=== PATIENT | female | born 2000 | race Caucasian/White ===

== ENCOUNTER 2019-04-24 13:22 | Outpatient (CLI) | payer OTHER, SELFPAY ==
[2019-04-24 14:13] LABS: Hematocrit 42.1 % (37.0-47.0); Mean Corpuscular HGB Conc 33.3 g/dl (32-36); Mean Corpuscular Hemoglobin 29.6 pg (26-34); Mean Platelet Volume 9.7 fl (7.4-10.4); Platelet Count Result 324 k/mm3 (150-375); Red Blood Count 4.73 M/mm3 (4.2-5.4); White Blood Count 11.1 K/mm3 (4.5-10.0)
[2019-04-24 14:28] LABS: Alanine Aminotransferase 10 U/L (4-35); Albumin Level 4.6 g/dL (3.5-5.1); Alkaline Phosphatase 81 U/L (38-126); Aspartate Amino Transferase 17 U/L (14-36); Bilirubin,Total 0.5 mg/dL (0.2-1.3); Blood Urea Nitrogen 8 mg/dL (7-17); Calcium 9.2 mg/dL (8.4-10.2); Carbon Dioxide 20 mmol/L (22-30); Chloride 101 mmol/L (98-107); Estimated Glomerular Filt Rate > 60; Glucose 84 mg/dL (65-105); Potassium 3.5 mmol/L (3.4-5.0); Sodium 138 mmol/L (137-145)
[2019-04-24 15:00] LABS: Thyroid Stimulating Hormone 0.284 uIU/mL (0.465-4.680)
[2019-04-24 15:10] LABS: Free T4 Free Thyroxine 1.11 ng/mL (0.78-2.19)
[2019-04-29 07:43] LABS: Vitamin D 1,25 (OH)2 Total 41 pg/mL (18-72); Vitamin D2 1,25 (OH)2 <8 pg/mL; Vitamin D3 1,25 (OH)2 41 pg/mL
== END 2019-04-24 13:23 | disposition home or self-care (01) ==
LOC: ANHLAB 13:24
PROVIDERS: PCP Family Medicine; Visit Provider Nurse Practitioner Family
DX: E04.9 Nontoxic goiter, unspecified (principal); F41.9 Anxiety disorder, unspecified; E55.9 Vitamin D deficiency, unspecified
CPT/HCPCS: 36415; 80053; 82652; 84439; 84443; 85027

== ENCOUNTER 2019-04-26 08:57 | Outpatient (CLI) | payer OTHER, SELFPAY ==
--- NOTE | ~2019-04-26 | US_ITS ---
EXAMINATION: US thyroid DATE: 04/26/2019 10:13 INDICATION: Goiter. TECHNIQUE: Multiple ultrasound images of the thyroid were obtained. COMPARISON: None. FINDINGS: The right thyroid lobe measures 4.9 x 1.7 x 1.6 cm. The left thyroid lobe measures 5.3 x 1.9 x 1.7 c m. There is normal echotexture and echogenicity throughout the thyroid gland. No discrete nodules id entified. Normal vascular flow is present. IMPRESSION: 1. Normal thyroid. Reviewed, dictated and finalized at location A. ING RIGGER IMPRESSION: 1. Normal thyroid.
== END 2019-04-26 08:58 | disposition home or self-care (01) ==
PROVIDERS: PCP Family Medicine; Visit Provider Nurse Practitioner Family
DX: E04.9 Nontoxic goiter, unspecified (principal)
CPT/HCPCS: 76536

== ENCOUNTER 2019-05-08 21:47 | Emergency (ER) | payer OTHER, SELFPAY ==
--- NOTE | ~2019-05-08 | CT_ITS ---
EXAMINATION: CT soft tiss nk chst ab pel w DATE: 05/09/2019 01:31 INDICATION: Throat swelling and neck pain, abdominal pain and diarrhea TECHNIQUE: Transaxial computed tomographic images of the neck, chest, abdomen, and pelvis were obtain ed after the administration of 100 cc of Omnipaque 350 intravenous contrast. The dose-length product (DLP) was 999.05 mGy-cm. Automated exposure control and iterative reconstruction technique were emplo yed. COMPARISON: None FINDINGS: NECK CT: The neck soft tissues are unremarkable. No abnormal enhancement is identified. There is no lymphadeno yahir. There is straightening of the cervical spine which can be positional or due to muscular spasm. No acute osseous abnormality is identified. CHEST CT: The lungs are free of acute opacities. There is no pleural effusion or pneumothorax. No pathologicall y enlarged thoracic lymph nodes are identified. The heart size is normal. Triangular soft tissue dens ity of the anterior mediastinum is consistent with residual thymus. Motion artifact somewhat limits e valuation of the lung bases. ABDOMEN/PELVIS CT: The liver, spleen, pancreas, gallbladder, and adrenal glands are normal. The kidneys are unremarkable . No pathologically enlarged abdominal or pelvic lymph nodes are identified. There is no free intrape ritoneal gas or evidence of bowel obstruction. The appendix is normal. There is hypoenhancement of th e cervix relative to the remainder of the uterus which is best appreciated on the sagittal reconstruc tino images. IMPRESSION: 1. No CT correlate for the patient's symptoms. 2. Hypoenhancement of the cervix relative to the uterus. Although a nonspecific finding, would recomm end direct visualization to evaluate for cervical abnormality or malignancy. These findings and recommendations were discussed with Cassia Berkowitz NP on 05/09/2019 09:10 VENEER JOINTER OFFBEARER. Reviewed, dictated and finalized at location A. ER JOINTER OFFBEARER IMPRESSION: 1. No CT correlate for the patient's symptoms. 2. Hypoenhancement of the cervix relative to the uterus. Although a nonspecific finding, would recommend direct visualization to evaluate for cervical abnorma lity or malignancy. These findings and recommendations were discussed with Cassia Berkowitz NP on 05/09 09:10 VENEER JOINTER OFFBEARER.
--- NOTE | ~2019-05-08 | XR_ITS ---
EXAMINATION: XR chest 2V DATE: 05/09/2019 01:38 INDICATION: Palpitations. TECHNIQUE: Frontal and lateral views of the chest were obtained. COMPARISON: Chest single view 03/30/2018, chest CT 05/09/2019 FINDINGS: The chest demonstrates clear lungs without pneumonia, pleural effusion, or pneumothorax. Th e heart size is normal. IMPRESSION: 1. No acute cardiopulmonary disease. Reviewed, dictated and finalized at location A. FARMER
[2019-05-08 21:54] VITALS: BP 122/77; PULSE 88; RESP 17; TEMP 36.7; O2SAT 100
--- NOTE | 2019-05-08 23:48 | ED.URI ---
HPI - URI/Sore Throat General Chief Complaint: Dental/Oral Stated Complaint: ALL RX? Time Seen by Provider: 05/08/19 23:37 Source: patient and RN notes reviewed Mode of arrival: ambulatory Limitations: no limitations History of Present Illness HPI Narrative: Pt is a 19 y/o female who presents to the ED with c/o throat swelling starting 2 days ago. She notes that she has had recent blood work that revealed elevated thyroid levels. Pt states that she has also had an increased number of panic attacks over the past several months, noting that she is worried about leaving her house due to her being concerned that she may have a panic attack and stop breathing. She states that she was previously evaluated at [facility] for her symptoms. Pt states that her throat has felt swollen for the past several days, noting that she has had intermittent difficulty breathing due to her symptoms. Pt states that she has had pain with swallowing over the past few days. She also reports nausea, diarrhea, and diffuse ABD cramping, but denies any vomiting, fever, chills, otalgia, or cough. Pt notes that her symptoms feel distinct from prior episodes of strep throat. MD elicited complaint: other (Throat Swelling) Onset (ago): day(s) (2) Associated symptoms: shortness of breath, abdominal pain (diffuse ABD cramping), nausea, diarrhea and other (anxiety) Related Data Home Medications Medication Instructions Recorded Confirmed albuterol sulfate 90 mcg/actuation 1 puff INHALATION Q4H PRN 04/24/19 04/24/19 aerosol inhaler medroxyprogesterone 150 mg/mL 150 mg IM [id number] 04/24/19 04/24/19 intramuscular suspension Allergies Allergy/AdvReac Type Severity Reaction Status Date / Time cephalexin Allergy Mild RASH Verified 05/08/19 21:51 Cephalosporins Allergy Mild HIVES Verified 05/08/19 21:51 codeine Allergy Unknown VOMITING Verified 05/08/19 21:51 Review of Systems Review of Systems: Narrative: CONSTITUTIONAL: Denies fever, chills, or sweats. ENT: Denies rhinorrhea, congestion, or otalgia. Reports throat swelling. CARDIOVASCULAR: Denies chest pain, palpitations, or edema. RESPIRATORY: Denies cough. Reports dyspnea. GASTROINTESTINAL: Reports diffuse abdominal cramping, nausea, and diarrhea. Denies vomiting. PSYCHIATRIC: Reports anxiety. All systems reviewed & are unremarkable except as noted in HPI and below PMFSH Past Medical History Medical History Anxiety Asthma Blepharitis of both eyes Dysphagia Epilepsy Fractures Left arm, right hand GERD (gastroesophageal reflux disease) Vitamin D deficiency Surgical History Surgical History History of orthopedic surgery Ankle, ligament reconstruction Family History Family History (Updated 04/24/19 @ 11:02 by Leanna Metz [facility]) Mother Thyroid condition Father Depression Bipolar 1 disorder Social History Social History Smoking status: Never smoker Alcohol intake: current Drinks per week: 1 Substance use: unknown Substance use type: unknown Gender identity (if verbalized by the patient): Female Exam Narrative: Exam Narrative: GENERAL: Tearful, well-nourished, and in no acute distress. HEAD: Normocephalic, atraumatic. EYES: PERRLA and EOMI. ENT: Nares clear, no rhinorrhea or epistaxis. Mucous membranes moist. Bilateral tonsillar edema and erythema. No tonsillar exudate. NECK: Supple. No cervical anterior or posterior lymphadenopathy. CHEST: Clear to auscultation. No respiratory distress. HEART: Regular rate and rhythm. No murmur heard. Normal peripheral pulses. ABDOMEN: Soft, nontender, nondistended, normal active bowel sounds. EXTREMITIES: Normal range of motion. No edema. SKIN: Warm, dry, no rash. NEURO: No focal deficits. Alert and oriented. Course Course Emergency Course: Patient presented for a variety of symptom
[2019-05-08 23:59] VITALS: BP 115/81; PULSE 83; RESP 17; O2SAT 100
--- NOTE | 2019-05-09 | ECG_ITS ---
Measurements Intervals [place] Rate: 67 P: 21 HI: 136 QRS: 59 QRSD: 87 T: 40 QT: 405 QTc: 428 Interpretive Statements SINUS RHYTHM WITH SINUS ARRHYTHMIA ST ELEVATION IN DIFFUSE LEADS- PROBABLY EARLY REPOLARIZATION BORDERLINE ECG Electronically Signed On 05-09-2019 6:49:55 LABEL PRINTER by Cecil Nunez D.O.
[2019-05-09 00:05] VITALS: BP 121/74; PULSE 75; RESP 10; O2SAT 100
[2019-05-09 00:06] VITALS: BP 121/74; PULSE 77; RESP 18; O2SAT 100
[2019-05-09 00:42] LABS: Add Urine Microscopic? YES; Appearance Urine Clear (Clear); Bilirubin Urine Negative (Negative); Blood Urine 1+ (Negative); Color Urine Yellow (Yellow); Glucose Urine UA Negative (Negative); Ketones Urine Trace mg/dL (Negative); Leukocyte Esterase Ur Negative LEU/UL (Negative); Mucus Urine Few /lpf; Nitrate Urine Negative (Negative); Protein Urine Negative (Negative); RBC Urine 0-2 /hpf (0-2); Squamous Epithelial Cell Urine Occasional /hpf (Few); Urobilinogen Urine Negative mg/dL (<2.0); WBC Urine 0-3 /hpf
[2019-05-09] MEDS: DEXAMETHASONE SOD PHOS INJ 4 MG/ML VIAL 10 MG BY MOUTH (00:48)
[2019-05-09 01:02] LABS: Basophils Absolute Auto 0.1 K/mm3 (0.0-0.1); Basophils Percent Auto 0.7 % (0.2-1.2); Eosinophils Absolute Auto 0.5 K/mm3 (0-0.3); Eosinophils Percent Auto 4.7 % (0-4.4); Hematocrit 41.5 % (37.0-47.0); Hemoglobin 13.7 g/dL (12.0-15.0); Immature Granulocyte Absolute 0.02 K/mm3 (0.00-0.031); Immature Granulocyte Percent A 0.2 % (0-0.5); Lymphocytes Absolute Auto 2.91 K/mm3 (0.9-3.2); Lymphocytes Percent Auto 30.7 % (18.3-44.2); Mean Corpuscular Hemoglobin 29.5 pg (26-34); Mean Corpuscular Volume 89.4 fl (80-100); Mean Platelet Volume 9.7 fl (7.4-10.4); Monocytes Absolute Auto 0.6 K/mm3 (0.1-0.6); Monocytes Percent Auto 6.4 % (2.6-8.5); Neutrophils Absolute Auto 5.4 K/mm3 (1.3-6.7); Neutrophils Percent Auto 57.3 % (45.5-73.1); Platelet Count Result 277 k/mm3 (150-375); Red Blood Count 4.64 M/mm3 (4.2-5.4); Red Cell Distribution Width 12.1 % (11.5-14.5); White Blood Count 9.5 K/mm3 (4.5-10.0)
[2019-05-09 01:12] LABS: INR 1.1; Prothrombin Time 13.5 Seconds (11.1-14.7)
[2019-05-09 01:13] LABS: Partial Thromboplastin Time 28.5 SECONDS (22.3-36.8)
[2019-05-09 01:18] LABS: Alanine Aminotransferase 10 U/L (4-35); Albumin Level 4.5 g/dL (3.5-5.1); Alkaline Phosphatase 80 U/L (38-126); Aspartate Amino Transferase 16 U/L (14-36); Bilirubin,Total 0.6 mg/dL (0.2-1.3); Blood Urea Nitrogen 5 mg/dL (7-17); Calcium 9.1 mg/dL (8.4-10.2); Carbon Dioxide 21 mmol/L (22-30); Chloride 105 mmol/L (98-107); Estimated CRCL calculation 111 ml/min; Estimated Glomerular Filt Rate > 60; Glucose 89 mg/dL (65-105); Potassium 3.7 mmol/L (3.4-5.0); Sodium 140 mmol/L (137-145)
[2019-05-09 01:31] LABS: Troponin I < 0.012 ng/mL (0.000-0.034)
[2019-05-09 01:49] LABS: Thyroid Stimulating Hormone 0.744 uIU/mL (0.465-4.680)
[2019-05-09 02:30] VITALS: BP 100/66; PULSE 75; RESP 16; TEMP 36.8; O2SAT 100
== END 2019-05-09 02:33 | disposition home or self-care (01) ==
PROVIDERS: Emergency Provider Emergency Medicine; PCP Family Medicine
DX: R00.2 Palpitations (principal); J02.9 Acute pharyngitis, unspecified; R06.02 Shortness of breath; R19.7 Diarrhea, unspecified; R10.9 Unspecified abdominal pain; R11.0 Nausea
CPT/HCPCS: 36415; 70491; 71046; 71260; 74177; 80053; 81001; 81025; 84443; 84484; 85025; 85610; 85730; 87081; 87880; 93005; 96374; 99284; J1100; Q9967

== ENCOUNTER 2019-10-22 11:10 | Emergency (ER) | payer OTHER, SELFPAY ==
--- NOTE | ~2019-10-22 | XR_ITS ---
EXAMINATION: XR chest 1V portable DATE: 10/22/2019 11:52 INDICATION: Wheezing TECHNIQUE: frontal view of the chest was obtained. COMPARISON: Chest radiograph dated 05/09/2019 FINDINGS: The lungs remain clear with no focal airspace opacities, pulmonary edema, pleural effusion or pneumot horax. The cardiomediastinal silhouette is normal. Visualized bones and soft tissues are unremarkable . IMPRESSION: 1. No acute cardiopulmonary disease. Reviewed, dictated and finalized at location A.
[2019-10-22 11:12] VITALS: BP 128/83; PULSE 92; RESP 18; TEMP 36.7; O2SAT 100
[2019-10-22 11:51] LABS: Basophils Absolute Auto 0.1 K/mm3 (0.0-0.1); Basophils Percent Auto 0.6 % (0.2-1.2); Eosinophils Absolute Auto 0.7 K/mm3 (0-0.3); Eosinophils Percent Auto 6.9 % (0-4.4); Hematocrit 40.5 % (37.0-47.0); Hemoglobin 13.5 g/dL (12.0-15.0); Immature Granulocyte Absolute 0.03 K/mm3 (0.00-0.031); Immature Granulocyte Percent A 0.3 % (0-0.5); Lymphocytes Absolute Auto 2.65 K/mm3 (0.9-3.2); Lymphocytes Percent Auto 27.2 % (18.3-44.2); Mean Corpuscular HGB Conc 33.3 g/dl (32-36); Mean Corpuscular Hemoglobin 29.6 pg (26-34); Mean Corpuscular Volume 88.8 fl (80-100); Mean Platelet Volume 9.6 fl (7.4-10.4); Monocytes Absolute Auto 0.8 K/mm3 (0.1-0.6); Monocytes Percent Auto 7.8 % (2.6-8.5); Neutrophils Absolute Auto 5.6 K/mm3 (1.3-6.7); Neutrophils Percent Auto 57.2 % (45.5-73.1); Platelet Count Result 295 k/mm3 (150-375); Red Blood Count 4.56 M/mm3 (4.2-5.4); White Blood Count 9.8 K/mm3 (4.5-10.0)
--- NOTE | 2019-10-22 11:58 | ED.NAVMDI ---
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 patient denies any current dyspnea does note history of exertional asthma has been using her inhaler but otherwise on arrival is in no distress has not been taking any other medications and on arrival is in the room in no distress resting comfortably Related Data Home Medications Medication Instructions Recorded Confirmed albuterol sulfate [Ventolin HFA] INHALATION 10/22/19 escitalopram oxalate mg 10/22/19 omeprazole 10/22/19 Allergies Allergy/AdvReac Type Severity Reaction Status Date / Time cephalexin Allergy Mild RASH Verified 10/22/19 11:29 Cephalosporins Allergy Mild HIVES Verified 10/22/19 11:29 codeine Allergy Unknown VOMITING Verified 10/22/19 11:29 Review of Systems Review of Systems: All systems reviewed & are unremarkable except as noted in HPI and below PMFSH Past Medical History Medical History Allergy-induced asthma Anxiety Asthma Blepharitis of both eyes Dysphagia Encounter for cervical Pap smear with pelvic exam Enlarged thyroid Epilepsy infancy Fractures Left arm, right hand GERD (gastroesophageal reflux disease) Pharyngitis Vitamin D deficiency Surgical History Surgical History History of orthopedic surgery Ankle, ligament reconstruction Family History Family History (Updated 04/24/19 @ 11:02 by Leanna Metz SENIOR ETL DEVELOPER) Mother Thyroid condition Father Depression Bipolar 1 disorder Social History Social History Smoking status: Never smoker Alcohol intake: current Drinks per week: 1 Substance use: unknown Substance use type: unknown Gender identity (if verbalized by the patient): Female Exam Narrative: Exam Narrative: GENERAL: Well-appearing, well-nourished, and in no acute distress. HEAD: Normocephalic, atraumatic. EYES: PERRLA and EOMI. ENT: Nares clear, no rhinorrhea or epistaxis. Mucous membranes moist. Oropharynx without tonsillar hypertrophy exudate or other lesions. CHEST: Clear to auscultation. No respiratory distress. No wheezes rales or rhonchi HEART: Regular rate and rhythm. No murmur heard. Normal peripheral pulses. ABDOMEN: Soft, nontender, nondistended EXTREMITIES: Normal range of motion. No edema. SKIN: Warm, dry, no rash. NEURO: No focal deficits. Alert and oriented x3. PSYCH: Normal mood and affect. Course Course Emergency Course: Patient in the room in no distress aware of case findings treatment plan and diagnosis felt appropriate for discharge home pending COVID-19 test results will self quarantining follow-up with primary care Vital Signs Vital signs: Vital Signs Temperature 98.0 F 10/22/19 11:12 Pulse Rate 92 10/22/19 11:12 Respiratory Rate 18 10/22/19 11:12 Blood Pressure 128/83 10/22/19 11:12 Pulse Oximetry 100 10/22/19 11:12 Temperature 98.0 F 10/22/19 11:12 Pulse Rate 92 10/22/19 11:12 Respiratory Rate 18 10/22/19 11:12 Blood Pressure 128/83 10/22/19 11:12 Pulse Oximetry 100 10/22/19 11:12 MDM - Nausea/Vomiting/Diarrhea MDM Narrative Medical decision making narrative: Patient in the room in no distress no high risk changes in the blood work or imaging afebrile nontoxic-appearing no distress will follow with primary care for COVID results and will self quarantine until results have been obtained patient will return if s
[2019-10-22 11:59] LABS: Add Urine Microscopic? NO; Appearance Urine Clear (Clear); Bacteria Urine Trace /hpf; Bilirubin Urine Negative (Negative); Blood Urine Negative (Negative); Color Urine Yellow (Yellow); Glucose Urine UA Negative (Negative); Ketones Urine Negative (Negative); Leukocyte Esterase Ur Negative LEU/UL (Negative); Mucus Urine Rare /lpf; Nitrate Urine Negative (Negative); Protein Urine Negative (Negative); RBC Urine 0-2 /hpf (0-2); Specific Grav Ur 1.012 (1.001-1.035); Squamous Epithelial Cell Urine Occasional /hpf (Few); Urobilinogen Urine Negative mg/dL (<2.0); WBC Urine 0-3 /hpf
[2019-10-22 12:05] LABS: Alanine Aminotransferase 9 U/L (4-35); Alkaline Phosphatase 68 U/L (38-126); Anion Gap 7 mmol/L (8-16); Aspartate Amino Transferase 17 U/L (14-36); Bilirubin,Total 0.3 mg/dL (0.2-1.3); Blood Urea Nitrogen 7 mg/dL (7-17); Calcium 8.6 mg/dL (8.4-10.2); Carbon Dioxide 23 mmol/L (22-30); Chloride 108 mmol/L (98-107); Estimated CRCL calculation 132 ml/min; Estimated Glomerular Filt Rate > 60; Glucose 83 mg/dL (65-105); Lipase 83 U/L (23-300); Potassium 3.5 mmol/L (3.4-5.0); Sodium 138 mmol/L (137-145)
[2019-10-22 12:20] VITALS: BP 100/73; PULSE 84; RESP 16; O2SAT 100
[2019-10-23 12:13] LABS: SARS-CoV-2 RNA PCR Negative
== END 2019-10-22 12:20 | disposition home or self-care (01) ==
PROVIDERS: Emergency Provider Emergency Medicine; PCP Family Medicine
DX: J06.9 Acute upper respiratory infection, unspecified (principal); Z20.828 Contact with and (suspected) exposure to other viral communicable diseases; F41.9 Anxiety disorder, unspecified; K21.9 Gastro-esophageal reflux disease without esophagitis; E55.9 Vitamin D deficiency, unspecified; J45.909 Unspecified asthma, uncomplicated
CPT/HCPCS: 36415; 71045; 80053; 81003; 81025; 83690; 85025; 87635; 99283; C9803; U0003

== ENCOUNTER 2019-10-24 15:00 | Emergency (ER) | payer OTHER, SELFPAY ==
[2019-10-24 15:14] VITALS: BP 128/93; PULSE 112; RESP 20; TEMP 36.6; O2SAT 100
--- NOTE | 2019-10-24 15:34 | ED.GENADULT ---
HPI - General Adult General Chief complaint: Upper Respiratory Infection Stated complaint: jauregui/nausea Time Seen by Provider: 10/24/19 15:34 Source: patient and RN notes reviewed Mode of arrival: ambulatory Limitations: no limitations History of Present Illness HPI narrative: 19-year-old female presents with complains of headache with aura for the past 5 days. Kathleen was treated at [facility] on 10/22/19 for symptoms and given Compazine, Claritin, and Tylenol without relief. This JAUREGUI is not the WORST one of her life. No neck stiffness. No fever or chills. No URI symptoms. No head injury. No history of migraines. Intermittent dizziness with moving head from side to side, none at this time. No vision change, confusion, or seizure activity. Denies being , LMP 2 weeks. The patient reports she have not been diagnosed with COVID-19. The patient reports she are not waiting for the results of a COVID-19 lab test. Kathleen says she was tested on 10/22/19 and was NEGATIVE. The patient reports she do not have fever, chills, or weakness. The patient reports she do not have a new or worsening cough or shortness of breath. Denies chest pain. The patient reports she do not have any rhinorrhea, congestion, sore throat, vomiting, abdominal pain, and diarrhea. Tolerating po intake well. Denies recent traveling. Denies concerns for COVID-19 or exposures been home with limited outdoor exposure except for essential household needs and return home. At this time, patient is not suspected of having COVID-19. Some parts of this dictation were generated by voice recognition software and may contain typographical and/or grammatical inaccuracies. Related Data Home Medications Medication Instructions Recorded Confirmed escitalopram oxalate 20 mg DAILY 10/22/19 omeprazole 40 mg DAILY 10/22/19 10/24/19 lorazepam 0.5 mg PO BID PRN 10/24/19 10/24/19 Allergies Allergy/AdvReac Type Severity Reaction Status Date / Time cephalexin Allergy Mild RASH Verified 10/22/19 11:29 Cephalosporins Allergy Mild HIVES Verified 10/22/19 11:29 codeine Allergy Unknown VOMITING Verified 10/22/19 11:29 Review of Systems Review of Systems: Narrative: CONSTITUTIONAL: Denies fever, chills, sweats. EYES: Denies visual changes, redness, discharge. ENT: Denies rhinorrhea, congestion, sore throat, otalgia. CARDIOVASCULAR: Denies chest pain, palpitations, edema. RESPIRATORY: Denies dyspnea, wheezing, cough. GASTROINTESTINAL: Denies abdominal pain, vomiting, or diarrhea. Complains of nausea. GENITOURINARY: Denies dysuria, hematuria, abnormal discharge. SKIN: Denies rash or itching. MUSCULOSKELETAL: Denies acute back pain, joint pain, or myalgia. NEUROLOGIC: Denies numbness or focal weakness. Complaints of headaches with aura. PSYCHIATRIC: Denies anxiety or depression. All systems reviewed & are unremarkable except as noted in HPI and below. [facility] Past Medical History Medical History Allergy-induced asthma Anxiety Asthma Blepharitis of both eyes Dysphagia Encounter for cervical Pap smear with pelvic exam Enlarged thyroid Epilepsy infancy Fractures Left arm, right hand GERD (gastroesophageal reflux disease) Pharyngitis Vitamin D deficiency Surgical History Surgical History History of orthopedic surgery Ankle, ligament reconstruction Family History Family History (Updated 10/24/19 @ 16:08 by EMILY Yung) Mother Thyroid condition Heart disease Father Depression Bipolar 1 disorder Social History Social History (Updated 10/24/19 @ 16:09 by EMILY Yung) Smoking status: Never smoker Tobacco type: cigarettes Second hand tobacco smoke exposure: No Alcohol intake: current Drinks per week: 1 Substance use: never Substance use type: unknown Gender identity (if verbalized by the patient)
[2019-10-24] MEDS: ONDANSETRON HCL ODT 4 MG TABLET PO (15:47)
[2019-10-24] MEDS: KETOROLAC (*BKC) 60 MG/2 ML VIAL IM (15:48)
[2019-10-24] MEDS: MECLIZINE HCL 25 MG TABLET PO (15:48)
[2019-10-24 16:19] VITALS: BP 120/76; PULSE 90; RESP 20; O2SAT 100
== END 2019-10-24 16:20 | disposition home or self-care (01) ==
PROVIDERS: Emergency Provider Nurse Practitioner Family; PCP Nurse Practitioner Family
DX: R51 Headache (principal); F41.9 Anxiety disorder, unspecified; J45.909 Unspecified asthma, uncomplicated; K21.9 Gastro-esophageal reflux disease without esophagitis; E55.9 Vitamin D deficiency, unspecified
CPT/HCPCS: 96372; 99213; A9270; G0463; J1885

== ENCOUNTER 2019-12-05 17:15 | Emergency (ER) | payer OTHER, SELFPAY ==
--- NOTE | ~2019-12-05 | XR_ITS ---
EXAMINATION: XR chest 2V 12/05/2019 17:36 INDICATION: Wheezing and cough. History of asthma. PROCEDURE: 2 view chest COMPARISON: Comparison to multiple prior studies sequentially, with oldest reviewed study dated 07/28. FINDINGS: The lungs are clear. The cardiomediastinal silhouette is within normal limits. There are no pleural effusions. There is no pneumothorax suspected. IMPRESSION: 1: NO ACUTE CARDIOPULMONARY DISEASE. Reviewed, dictated and finalized at location A.
[2019-12-05 17:20] VITALS: BP 130/79; PULSE 102; RESP 12; TEMP 36.7; O2SAT 98
--- NOTE | 2019-12-05 17:22 | ED.URI ---
HPI - URI/Sore Throat General Chief Complaint: Upper Respiratory Infection Stated Complaint: WHEEZING Source: patient and RN notes reviewed Limitations: no limitations History of Present Illness HPI Narrative: The patient- a non-smoker/ occ drinker with a history of mood disorder, exercise-induced RAD- presents with wheezing. Patient states she had a covid test yesterday and was given amoxicillin and Tessalon for quick onset of wheezing, cough and shortness of breath. No fever, chest pain, loss of taste/smell,, sore throat, earache, pets/trigger/smokers,; symptoms are mild and have been relieved in the past with steroids. She has had no prior hospitalizations Related Data Home Medications Medication Instructions Recorded Confirmed omeprazole 40 mg DAILY 10/22/19 12/04/19 Allergies Allergy/AdvReac Type Severity Reaction Status Date / Time cephalexin Allergy Mild RASH Verified 12/04/19 11:48 Cephalosporins Allergy Mild HIVES Verified 12/04/19 11:48 codeine Allergy Unknown VOMITING Verified 12/04/19 11:48 Review of Systems Review of Systems: Narrative: General/Constitutional: No weight loss,fever Eyes: N0: Redness,discharge Ears/Nose/Throat: No: Epistaxis,ear discharge Respiratory: Denies: Hemoptysis Gastrointestinal: No Vomiting, Bleeding-rectal Skin: No Lumps, eruption Neurologic: No Focal Weakness,Sz Hematologic: Denies: Petechiae/Purpura Psychiatric: No: Suicida ideationl All Other Systems: Reviewed and Negative [facility] Family History Family History (Updated 10/24/19 @ 16:08 by EMILY Yung) Mother Thyroid condition Heart disease Father Depression Bipolar 1 disorder Social History Social History (Updated 10/24/19 @ 16:09 by EMILY Yung) Smoking status: Never smoker Tobacco type: cigarettes Second hand tobacco smoke exposure: No Alcohol intake: current Drinks per week: 1 Substance use: never Substance use type: unknown Gender identity (if verbalized by the patient): Female Comments At time of signature, agree with nursing past medical, surgical, social and family history. There is no relevant family history pertinent to the presenting complaint Exam Narrative: Exam Narrative: General Appearance: Well appearing, Conjunctiva clear Ears: Auditory canal normal, TM normal Nose: Rhinorrhea, Mucousal erythema Mouth/Throat: MM moist, Uvula midline, Pharyngeal erythema Neck: Supple, No adenopathy Respiratory: No respiratory distress, Breath sounds equal, mostly CTA with rare wheezes left posterior base Cardiovascular: RRR, No JVD Musculoskeletal: Non tender, Normal strength Skin: Warm, Dry Neurological: A&O x3, Normal mood, Course Course Emergency Course: Films visualized, interpreted by radiologist, agree, normal see report Vital Signs Vital signs: Vital Signs Temperature 98.0 F 12/05/19 17:20 Pulse Rate 102 H 12/05/19 17:20 Respiratory Rate 12 12/05/19 17:20 Blood Pressure 130/79 12/05/19 17:20 Pulse Oximetry 98 12/05/19 17:20 Temperature 98.0 F 12/05/19 17:20 Pulse Rate 102 H 12/05/19 17:20 Respiratory Rate 12 12/05/19 17:20 Blood Pressure 130/79 12/05/19 17:20 Pulse Oximetry 98 12/05/19 17:20 Discharge Plan Discharge Clinical Impression: Wheezing-associated respiratory infection (WARI) Patient Disposition: Home, Self-Care Condition: Stable Instructions: Wheezing (ED) Additional Instructions: Get OTC supplements like vitamin D, zinc and pulse ox --when you get your prescription Continue your inhalers, antibiotics Prescriptions: New prednisone 20 mg tablet 60 mg PO DAILY Qty: 15 RF: 0 montelukast [Singulair] 10 mg tablet 10 mg PO HS Qty: 20 RF: 1 No Action bupropion HCl 75 mg tablet 75 mg PO .COMPLEX Qty: 60 RF: 0 amoxicillin-pot clavulanate 875-125 mg tablet 1 tablet PO Q12H Qty: 14 RF: 0 benzonatate 100 mg capsule 100 mg PO TID PRN (Reaso
[2019-12-05] MEDS: predniSONE 10 MG TABLET 60 MG PO (17:43)
== END 2019-12-05 18:08 | disposition home or self-care (01) ==
PROVIDERS: Emergency Provider Emergency Medicine; PCP Nurse Practitioner Family
DX: J98.01 Acute bronchospasm (principal)
CPT/HCPCS: 71046; 99213; G0463; J7512

== ENCOUNTER 2020-07-05 12:09 | Emergency (ER) | payer OTHER, SELFPAY ==
--- NOTE | ~2020-07-05 | XR_ITS ---
EXAMINATION: XR chest 2V DATE: 07/05/2020 12:44 INDICATION: Cough TECHNIQUE: PA and lateral views of the chest were obtained. COMPARISON: Chest radiograph dated 12/05/2019 FINDINGS: The lungs remain clear with no focal airspace opacities, pulmonary edema, pleural effusion or pneumot horax. The cardiomediastinal silhouette is normal. Mild upper thoracic levocurvature. IMPRESSION: 1. No acute cardiopulmonary disease. Reviewed, dictated and finalized at location A.
[2020-07-05 12:20] VITALS: BP 117/75; PULSE 105; RESP 16; TEMP 37.2; O2SAT 99
--- NOTE | 2020-07-05 12:28 | ED.GENADULT ---
HPI - General Adult General Chief complaint: Upper Respiratory Infection Stated complaint: difficulty breathing Time Seen by Provider: 07/05/20 12:28 Source: patient Mode of arrival: ambulatory Limitations: no limitations History of Present Illness HPI narrative: 20-year-old female patient presents to the [facility] with complaints of shortness of breath, runny nose, stuffy nose that is gotten increasingly worse for the past 5 days but states she has had symptoms now for about 3 weeks. Patient states she went down for that to visit her boyfriend who has a dog that she is allergic to. Patient does have a history of asthma. Patient states she has been taking her Kaylin and her Breo inhaler along with a Ventolin inhaler and it just does not seem to be helping. Patient did have COVID-19 back in March of this year. Denies fevers, body aches or chills. Related Data Home Medications Medication Instructions Recorded Confirmed amoxicillin 875 mg PO DAILY 07/05/20 07/05/20 clindamycin HCl 300 mg PO DAILY 07/05/20 07/05/20 fluticasone furoate-vilanterol 25 inh INHALATION DAILY 07/05/20 07/05/20 [Breo Ellipta] Allergies Allergy/AdvReac Type Severity Reaction Status Date / Time cephalexin Allergy Mild RASH Verified 07/05/20 12:20 Cephalosporins Allergy Mild HIVES Verified 07/05/20 12:20 codeine Allergy Unknown VOMITING Verified 07/05/20 12:20 Review of Systems Review of Systems: Narrative: CONSTITUTIONAL: Denies fever, chills, or sweats. EYES: Denies visual changes, redness, or discharge. ENT: Positive rhinorrhea, congestion, denies sore throat, or otalgia. CARDIOVASCULAR: Denies chest pain, palpitations, or edema. RESPIRATORY: Denies cough, positive dyspnea. GASTROINTESTINAL: Denies abdominal pain, nausea, vomiting, or diarrhea. GENITOURINARY: Denies dysuria or hematuria. SKIN: Denies rash or itching. MUSCULOSKELETAL: Denies back pain, joint pain, or myalgia. NEUROLOGIC: Denies headache, numbness, or weakness. PSYCHIATRIC: Denies anxiety or depression. [facility] Past Medical History Medical History (Updated 07/05/20 @ 13:07 by EMILY Quintero) Allergy-induced asthma Anxiety Asthma Blepharitis of both eyes COVID-19 virus infection Mar 2020 Dysphagia Encounter for cervical Pap smear with pelvic exam Enlarged thyroid Epilepsy infancy Fractures Left arm, right hand GERD (gastroesophageal reflux disease) Pharyngitis Vitamin D deficiency Surgical History Surgical History History of orthopedic surgery Ankle, ligament reconstruction Family History Family History Mother Thyroid condition Heart disease Father Depression Bipolar 1 disorder Social History Social History Smoking status: Never smoker Tobacco type: cigarettes Second hand tobacco smoke exposure: No Alcohol intake: current Drinks per week: 1 Substance use: never Substance use type: unknown Gender identity (if verbalized by the patient): Female Comments At the time of my signature I agree with nursing past medical history, surgical, social, and family history. There is no relevant family history pertinent to the presenting complaint. Exam Narrative: Exam Narrative: GENERAL: Well-appearing, well-nourished, and in no acute distress. HEAD: Normocephalic, atraumatic. EYES: PERRLA and EOMI. ENT: Nares with erythema and edema noted bilaterally, no rhinorrhea or epistaxis. Mucous membranes moist. Bilateral TMs are clear no erythema or foreign bodies in the canal. Posterior pharynx with no erythema, tonsillar [place], exudates or lesions present. NECK: Supple. No lymphadenopathy CHEST: Clear to auscultation. No respiratory distress. Patient able talk clear complete sentences. HEART: Regular rate and rhythm. No murmur heard. Normal peripheral pulses. ABDOMEN: Soft,
[2020-07-05] MEDS: IPRATROPIUM BR 0.02% INH SOLN 0.5 MG/2.5 ML VIAL INHALATION (12:48)
[2020-07-05] MEDS: ALBUTEROL SULFATE NEB 2.5 MG/3 ML INH INHALATION (12:48)
[2020-07-05 13:05] VITALS: PULSE 105; RESP 16; O2SAT 100
== END 2020-07-05 13:11 | disposition home or self-care (01) ==
PROVIDERS: Emergency Provider Nurse Practitioner Family; PCP Nurse Practitioner Family
DX: J45.31 Mild persistent asthma with (acute) exacerbation (principal); K21.9 Gastro-esophageal reflux disease without esophagitis; Z86.16 Personal history of COVID-19
CPT/HCPCS: 71046; 94640; 99213; G0463

== ENCOUNTER 2020-09-17 17:17 | Emergency (ER) | payer OTHER, SELFPAY ==
[2020-09-17 17:21] VITALS: BP 121/83; PULSE 94; RESP 12; TEMP 36.9; O2SAT 100
--- NOTE | 2020-09-17 17:44 | ED.FEMALEGU ---
HPI - Female Genitourinary General Chief complaint: Urogenital-Female Stated complaint: POS UTI/sore throat Time Seen by Provider: 09/17/20 17:19 Source: patient Mode of arrival: ambulatory Limitations: no limitations History of Present Illness HPI Narrative: 20-year-old female presents to [facility] with complaints of urinary frequency, urgency, pain and burning for the past 2 weeks. Patient reports that she has been taking [id number] Azo but feels that her symptoms were worsening today. Patient denies vaginal discharge, concern for STDs, abdominal pain, flank pain, fever, body aches, chills, nausea, vomiting or diarrhea. Patient reports that she also has had sore throat, dry cough, nasal congestion intermittent shortness of breath for the past few days. Patient reports that she has been having chronic shortness of breath since having Covid in February. Patient reports that she seen her primary care provider numerous times for this and has been placed on steroids in the past. Patient has history of asthma. Patient does take Zyrtec daily. Patient reports that she has been using her inhalers as prescribed. Patient is a non-smoker. MD elicited complaint: dysuria Vaginal discharge: none Urinary symptoms: Dysuria, Urgency and Frequency Exacerbating factors: none Relieving factors: none Patient : No Related Data Home Medications Medication Instructions Recorded Confirmed fluticasone furoate-vilanterol 25 inh INHALATION DAILY 07/05/20 07/05/20 [Breo Ellipta] Allergies Allergy/AdvReac Type Severity Reaction Status Date / Time cephalexin Allergy Mild RASH Verified 07/05/20 12:20 Cephalosporins Allergy Mild HIVES Verified 07/05/20 12:20 codeine Allergy Unknown VOMITING Verified 07/05/20 12:20 Review of Systems Constitutional: Constitutional: Denies chills and Denies fatigue ENT: Reports nasal congestion and Reports sore throat Cardiovascular: Cardiovascular: Denies chest pain Respiratory: Respiratory: Denies chest congestion, Reports cough, Reports dyspnea and Denies wheezing Gastrointestinal: Gastrointestinal: Denies abdominal pain, Denies constipation, Denies diarrhea, Denies nausea and Denies vomiting Genitourinary: Genitourinary: Reports nocturia, Reports dysuria, Denies pelvic pain and Denies vaginal discharge Musculoskeletal: Musculoskeletal: Denies back pain Integumentary/Breasts: Skin/Breast: Denies rash PMFSH Past Medical History Medical History Allergy-induced asthma Anxiety Asthma Blepharitis of both eyes COVID-19 virus infection Mar 2020 Dysphagia Encounter for cervical Pap smear with pelvic exam Enlarged thyroid Epilepsy infancy Fractures Left arm, right hand GERD (gastroesophageal reflux disease) Pharyngitis Vitamin D deficiency Surgical History Surgical History History of orthopedic surgery Ankle, ligament reconstruction Family History Family History Mother Thyroid condition Heart disease Father Depression Bipolar 1 disorder Social History Social History Smoking status: Never smoker Tobacco type: cigarettes Second hand tobacco smoke exposure: No Alcohol intake: current Drinks per week: 1 Alcohol use details: only during the weekend Substance use: never Substance use type: unknown Gender identity (if verbalized by the patient): Female Comments At time of signature, I agree with nursing past medical, surgical, social and family history. There is no relevant family history pertinent to the presenting complaint. Exam Const: General: no acute distress Nutritional Appearance: well nourished Orientation/consciousness: patient oriented x3 HENMT: Head: normal to inspection Ears: TM's normal bilaterally and EAC's philippe
== END 2020-09-17 17:59 | disposition home or self-care (01) ==
PROVIDERS: Emergency Provider Nurse Practitioner Family; PCP Nurse Practitioner Family
DX: N30.00 Acute cystitis without hematuria (principal); J06.9 Acute upper respiratory infection, unspecified; J45.909 Unspecified asthma, uncomplicated; Z86.16 Personal history of COVID-19; K21.9 Gastro-esophageal reflux disease without esophagitis
CPT/HCPCS: 81003; 87081; 87086; 87088; 87880; 99213; G0463

== ENCOUNTER 2020-11-20 10:53 | Outpatient (CLI) | payer OTHER, SELFPAY ==
--- NOTE | 2020-11-23 21:59 | P.PCNPFT_ITS ---
PFT Procedure Performed PFT Procedure Performed Plethysmography (Lung Vol) Diffusing Cap (DLCO) Flow Vol Loop Spirometry w/o Bronchodil PFT Interpretation DOS: 11/20/2020 REQUESTING: Salma Marion NP REASON FOR TESTING: Asthma PULMONARY FUNCTION TESTS results are reliable and reproducible. Spirometry: FEV1 is 77% predicted, mildly decreased. FVC is 86%. FEV1/FVC ratio was normal 77%. No bronchodilator was given. Lung volumes: Total lung capacity is 134% predicted, mild hyperinflation. Res idual volume is 265% consistent with severe air trapping. RV/TLC is 50% extremely increased consistent with air trapping. Airway resistance 166% increased. Diffusion: DLCO 87% normal. Flow volume loop: Unremarkable IMPRESSION: Mild obstructive ventilatory impairment, mild hyperinflation and severe air trapping. No bronchodilator was given. Patient may benefit from a trial of bronchodilator therapy. Adenike Montano MD
== END 2020-11-20 10:54 | disposition home or self-care (01) ==
PROVIDERS: PCP Nurse Practitioner Adult Health; Visit Provider Nurse Practitioner Adult Health
DX: J45.909 Unspecified asthma, uncomplicated (principal)
CPT/HCPCS: 94375; 94726; 94729

== ENCOUNTER 2020-12-20 02:00 | Emergency (ER) | payer OTHER, SELFPAY ==
[2020-12-20 02:12] VITALS: BP 119/76; PULSE 91; RESP 17; TEMP 36.7; O2SAT 100
--- NOTE | 2020-12-20 02:27 | ED.SKABFB ---
HPI - Skin/Abscess/Foreign Bdy General Chief complaint: Wound/Laceration Stated complaint: infection on my leg Time Seen by Provider: 12/20/20 02:03 Source: patient History of Present Illness HPI narrative: Patient presents with concern for infection in her leg. She reports she has had redness for the past several days was initially getting better however over the past couple days has become increasingly painful and swollen and now hurts to walk. Reports a history of hidradenitis. Denies fevers chills, nausea, vomiting, diarrhea Related Data Home Medications Medication Instructions Recorded Confirmed fluticasone furoate-vilanterol 25 inh INHALATION DAILY 07/05/20 07/05/20 [Breo Ellipta] Allergies Allergy/AdvReac Type Severity Reaction Status Date / Time cephalexin Allergy Mild RASH Verified 12/20/20 02:23 Cephalosporins Allergy Mild HIVES Verified 12/20/20 02:23 codeine Allergy Unknown VOMITING Verified 12/20/20 02:23 Review of Systems Review of Systems: CONSTITUTIONAL: Denies fever, chills, or sweats. EYES: Denies visual changes, redness, or discharge. ENT: Denies rhinorrhea, congestion, sore throat, or otalgia. CARDIOVASCULAR: Denies chest pain, palpitations, or edema. RESPIRATORY: Denies cough or dyspnea. GASTROINTESTINAL: Denies abdominal pain, nausea, vomiting, or diarrhea. GENITOURINARY: Denies dysuria or hematuria. SKIN: Denies rash or itching. MUSCULOSKELETAL: Denies back pain, joint pain, or myalgia. NEUROLOGIC: Denies headache, numbness, dizziness, or weakness. PSYCHIATRIC: Denies anxiety or depression. All systems reviewed & are unremarkable except as noted in HPI and below PMFSH Past Medical History Medical History Allergy-induced asthma Anxiety Asthma Blepharitis of both eyes COVID-19 virus infection Mar 2020 Dysphagia Encounter for cervical Pap smear with pelvic exam Enlarged thyroid Epilepsy infancy Fractures Left arm, right hand GERD (gastroesophageal reflux disease) Pharyngitis Vitamin D deficiency Surgical History Surgical History History of orthopedic surgery Ankle, ligament reconstruction Family History Family History Mother Thyroid condition Heart disease Father Depression Bipolar 1 disorder Social History Social History Smoking status: Never smoker Tobacco type: cigarettes Second hand tobacco smoke exposure: No Alcohol intake: current Drinks per week: 1 Alcohol use details: only during the weekend Substance use: never Substance use type: unknown Gender identity (if verbalized by the patient): Female Sexual Orientation (if Verbalized by the Patient): Straight or Heterosexual Exam Narrative: GENERAL: Well-appearing, well-nourished, and in no acute distress. HEAD: Normocephalic, atraumatic. EYES: PERRLA and EOMI. ENT: Nares clear, no rhinorrhea or epistaxis. Mucous membranes moist. NECK: Supple. No masses. No JVD EXTREMITIES: Normal range of motion. 3 x 4 area of erythema with central area of edema and fluctuance there is no open or draining wounds. There is exquisite tenderness overlying the central fluctuance. Area is on the medial proximal aspect of the left thigh SKIN: Warm, dry, no rash. NEURO: No focal deficits. Alert and oriented x3. PSYCH: Normal mood and affect. Course Reevaluation(s) Reevaluation #1: Patient is feeling much improved. Patient comfortable with outpatient plan. Given surrounding erythema concerning for cellulitis will treat with antibiotics. Patient will follow up with her crown ceramist. Date: 12/20/20 Time: 04:05 Vital Signs Vital signs: Vital Signs Temperature 36.7 C 12/20/20 02:12 Pulse Rate 91 12/20/20 02:12 Respiratory Rate 17 12/20/20 02:12 Blood Pressure 119/76
[2020-12-20] MEDS: LIDOCAINE, EPINEPHRINE, TETRACAINE VISCOUS SOLN 3 ML (02:35)
[2020-12-20 04:07] VITALS: BP 116/80; PULSE 81; RESP 15; O2SAT 100
== END 2020-12-20 04:27 | disposition home or self-care (01) ==
PROVIDERS: Emergency Provider Emergency Medicine; PCP Nurse Practitioner Adult Health
DX: L03.116 Cellulitis of left lower limb (principal); J45.909 Unspecified asthma, uncomplicated; Z86.16 Personal history of COVID-19; K21.9 Gastro-esophageal reflux disease without esophagitis; E55.9 Vitamin D deficiency, unspecified
CPT/HCPCS: 10060; 99283

== ENCOUNTER 2020-12-20 22:22 | Emergency (ER) | payer OTHER, SELFPAY ==
[2020-12-20 22:39] VITALS: BP 133/85; PULSE 108; RESP 18; TEMP 36.9; O2SAT 100
--- NOTE | 2020-12-20 22:52 | ED.WOUNDLAC ---
HPI - Wound/Laceration General Chief Complaint: Wound/Laceration Stated Complaint: wound - leg cellulitis Time Seen by Provider: 12/20/20 22:29 Source: patient and family Mode of arrival: ambulatory Limitations: no limitations History of Present Illness HPI narrative: 20-year-old female arrives complaining of increased pain and redness at the site of abscess I&D. Patient was seen in ED yesterday had left upper thigh abscess incised and drained with no packing but now complains of increasing redness and pain at the site. Patient mynor a line around the redness at around 8 PM but there is been no increased redness since that time. Patient also states she had the redness yesterday but feels like it is bigger than yesterday. Patient prescribed antibiotic but she has only taken her first dose approximately 6 hours prior to arrival. No fever, no additional discharge, no other complaints. Related Data Home Medications Medication Instructions Recorded Confirmed fluticasone furoate-vilanterol 25 inh INHALATION DAILY 07/05/20 07/05/20 [Breo Ellipta] Allergies Allergy/AdvReac Type Severity Reaction Status Date / Time cephalexin Allergy Mild RASH Verified 12/20/20 22:50 Cephalosporins Allergy Mild HIVES Verified 12/20/20 22:50 codeine Allergy Unknown VOMITING Verified 12/20/20 22:50 Review of Systems Review of Systems: CONSTITUTIONAL: no fever, no weight loss, no confusion EYES: no vision changes, no eye pain ENT: no rhinorrhea, no sore throat, no difficulty swallowing CARDIOVASCULAR: no chest pain, no leg edema, no palpitations RESPIRATORY: no cough, no shortness of breath, no hemoptysis GASTROINTESTINAL: no abdominal pain, no nausea, no vomiting, no diarrhea GENITOURINARY: no flank pain, no dysuria, no hematuria SKIN: no rash, no jaundice, positive for abscess, cellulitis MUSCULOSKELETAL: no back pain, no trauma. NEUROLOGIC: No headache, no dizziness, no focal weakness PSYCHIATRIC: No hallucinations, no suicidal ideation PMFSH Past Medical History Medical History Allergy-induced asthma Anxiety Asthma Blepharitis of both eyes COVID-19 virus infection Mar 2020 Dysphagia Encounter for cervical Pap smear with pelvic exam Enlarged thyroid Epilepsy infancy Fractures Left arm, right hand GERD (gastroesophageal reflux disease) Pharyngitis Vitamin D deficiency Surgical History Surgical History History of orthopedic surgery Ankle, ligament reconstruction Family History Family History Mother Thyroid condition Heart disease Father Depression Bipolar 1 disorder Social History Social History Smoking status: Never smoker Tobacco type: cigarettes Second hand tobacco smoke exposure: No Alcohol intake: current Drinks per week: 1 Alcohol use details: only during the weekend Substance use: never Substance use type: unknown Gender identity (if verbalized by the patient): Female Sexual Orientation (if Verbalized by the Patient): Straight or Heterosexual Exam Narrative: General: alert, afebrile, answering all questions appropriately Head: normocephalic, atraumatic Eyes: EOMI bilaterally, anicteric, no injection ENT: moist mucous membranes, oropharynx patent, no rhinorrhea Neck: supple, trachea midline, no JVD Chest: equal chest rise bilaterally, no chest wall trauma noted Skin: warm, dry, no pallor: abscess post I&D L upper thigh with approx 5cm circular erythema at site; no fluctuance Neuro: alert, oriented x 3; CN 2-12 grossly intact, no dysarthria Psych: affect appropriate, though content normal Course Course Emergency Course: Told patient I could change her antibiotics as needed and will prescribe them if the current antibiotic does not work. Of note patient is only taken
[2020-12-20] MEDS: CLINDAMYCIN HCL 150 MG CAP 600 MG PO (23:31)
[2020-12-20 23:35] VITALS: BP 108/66; PULSE 90; RESP 16; O2SAT 99
== END 2020-12-20 23:40 | disposition home or self-care (01) ==
PROVIDERS: Emergency Provider Emergency Medicine; PCP Nurse Practitioner Adult Health
DX: L03.116 Cellulitis of left lower limb (principal); J45.909 Unspecified asthma, uncomplicated; Z86.16 Personal history of COVID-19; K21.9 Gastro-esophageal reflux disease without esophagitis; E55.9 Vitamin D deficiency, unspecified
CPT/HCPCS: 10060; 99283; A9270

== ENCOUNTER 2021-03-04 16:51 | Emergency (ER) | payer OTHER, SELFPAY ==
--- NOTE | ~2021-03-04 | XR_ITS ---
EXAMINATION: XR chest 2V DATE: 03/04/2021 17:43 INDICATION: Shortness of breath and cough TECHNIQUE: PA and lateral views of the chest were obtained. COMPARISON: Chest radiograph dated 07/05/2020 FINDINGS: The lungs remain clear with no focal airspace opacities, pulmonary edema, pleural effusion or pneumot horax. The cardiomediastinal silhouette is normal. Visualized bones and soft tissues are unremarkable . IMPRESSION: 1. Normal chest radiograph. Reviewed, dictated and finalized at location H. ICIDE APPLICATOR IMPRESSION: 1. Normal chest radiograph.
[2021-03-04 16:57] VITALS: BP 142/97; PULSE 104; RESP 16; TEMP 37.1; O2SAT 100
--- NOTE | 2021-03-04 17:09 | ED.URI ---
HPI - URI/Sore Throat General Chief Complaint: Upper Respiratory Infection Stated Complaint: Sore Throat,Cough Time Seen by Provider: 03/04/21 17:30 Source: patient and RN notes reviewed Mode of arrival: ambulatory Limitations: no limitations History of Present Illness HPI Narrative: 21-year-old female presents with concern for sore throat, cough, back pain with coughing, wheezing, shortness of breath. She reports seeing a production lead for a chronic lung condition that she has had since she had Covid last year. Reports she recently had a CT and MRI of her lungs that was normal. She reports she just finished a Z-Tevin and a round of steroids without resolution. She denies fever, body aches, chills, sweats. Denies nausea, vomiting, diarrhea. MD elicited complaint: cough and sore throat Related Data Allergies Allergy/AdvReac Type Severity Reaction Status Date / Time cephalexin Allergy Mild RASH Verified 12/20/20 22:50 Cephalosporins Allergy Mild HIVES Verified 12/20/20 22:50 codeine Allergy Unknown VOMITING Verified 12/20/20 22:50 Review of Systems Review of Systems: CONSTITUTIONAL: Denies malaise, chills, sweats, or fever. EYES: Denies visual changes, redness, or discharge. ENT: Reports rhinorrhea, congestion, sore throat. Denies sinus pain, otalgia CARDIOVASCULAR: Denies chest pain, palpitations, or edema. RESPIRATORY: Reports cough, wheezing. Denies dyspnea. Reports back pain with coughing GASTROINTESTINAL: Denies abdominal pain, nausea, vomiting, diarrhea SKIN: Denies rash or itching. MUSCULOSKELETAL: Denies myalgia. NEUROLOGIC: Denies headache. All systems reviewed & are unremarkable except as noted in HPI and below PMFSH Past Medical History Medical History Allergy-induced asthma Anxiety Asthma Blepharitis of both eyes COVID-19 virus infection Mar 2020 Dysphagia Encounter for cervical Pap smear with pelvic exam Enlarged thyroid Epilepsy infancy Fractures Left arm, right hand GERD (gastroesophageal reflux disease) Pharyngitis Vitamin D deficiency Surgical History Surgical History History of orthopedic surgery Ankle, ligament reconstruction Family History Family History Mother Thyroid condition Heart disease Father Depression Bipolar 1 disorder Social History Social History Smoking status: Never smoker Tobacco type: cigarettes Second hand tobacco smoke exposure: No Alcohol intake: current Drinks per week: 1 Alcohol use details: only during the weekend Substance use: never Substance use type: unknown Gender identity (if verbalized by the patient): Female Sexual Orientation (if Verbalized by the Patient): Straight or Heterosexual Comments At time of signature, agree with nursing past medical, surgical, social and family history. There is no relevant family history pertinent to the presenting complaint Exam Narrative: GENERAL: Well-appearing, well-nourished, and in no acute distress. HEAD: Normocephalic EYES: PERRLA, conjunctivae clear ENT: Nares clear, clear discharge. Mucous membranes moist. TM pearly marrero with sharp light reflex bilaterally; no tragal tenderness. Oropharynx not erythematous without lesions. Tonsils not enlarged and without exudate, no drooling, no hoarseness, no trismus, uvula midline. NECK: Supple. No lymphadenopathy CHEST: Clear to auscultation, breath sounds equal. No wheezing, rhonchi, rales, or stridor. No respiratory distress, speaks in full sentences. HEART: Regular rate and rhythm. No murmur heard. SKIN: Warm, dry, no rash. NEURO: Alert and oriented x3. PSYCH: Normal mood and affect Course Course Emergency Course: Patient is aware of diagnosis, understands and agrees to treatment plan. Anticipatory guidance given. Patient agree
== END 2021-03-04 18:11 | disposition home or self-care (01) ==
PROVIDERS: Emergency Provider Nurse Practitioner; PCP Nurse Practitioner Adult Health
DX: J06.9 Acute upper respiratory infection, unspecified (principal); Z20.822 Contact with and (suspected) exposure to COVID-19; J45.909 Unspecified asthma, uncomplicated; Z86.16 Personal history of COVID-19; K21.9 Gastro-esophageal reflux disease without esophagitis
CPT/HCPCS: 71046; 87081; 87426; 87804; 87880; 99213; C9803; G0463

== ENCOUNTER 2022-03-12 15:57 | Emergency (ER) | payer OTHER, SELFPAY ==
--- NOTE | ~2022-03-12 | XR_ITS ---
EXAMINATION: XR chest 1V DATE: 03/12/2022 17:50 INDICATION: Chest pain and shortness of breath. TECHNIQUE: A single frontal view of the chest was obtained. COMPARISON: Chest 2 views 03/04/2021 FINDINGS: The chest demonstrates clear lungs without pneumonia, pleural effusion, or pneumothorax. Th e heart size is normal. IMPRESSION: 1. No acute cardiopulmonary disease. Reviewed, dictated and finalized at location A. OBLASTER
--- NOTE | ~2022-03-12 | CT_ITS ---
EXAMINATION: CT brain wo con DATE: 03/12/2022 21:01 INDICATION: Headache. TECHNIQUE: Computed tomography (CT) of the head was performed without intravenous contrast. The mA wa s adjusted according to patient size. Iterative reconstruction technique was employed. The dose-lengt h product was 605.33 mGy-cm. COMPARISON: Head CT 12/11/2016 FINDINGS: There is no intracranial hemorrhage, acute infarction, or abnormal intracranial mass lesion . The ventricles are normal in size. The paranasal sinuses are clear. The mastoid air cells are philippe l. The orbits are normal. IMPRESSION: 1. Normal brain. Reviewed, dictated and finalized at location A. ION MASTER IMPRESSION: 1. Normal brain.
--- NOTE | 2022-03-12 15:59 | ECG_ITS ---
Measurements Intervals [place] Rate: 85 P: 66 HI: 147 QRS: 54 QRSD: 82 T: 36 QT: 359 QTc: 429 Interpretive Statements SINUS RHYTHM WITH SINUS ARRHYTHMIA NORMAL ECG COMPARED TO ECG 05/09/2019 00:10:44 NO SIGNIFICANT CHANGES Electronically Signed On 03-13-2022 14:43:29 BALLASTER by Nathaniel Sanchez M.D.
[2022-03-12 16:22] VITALS: BP 126/87; PULSE 99; RESP 16; TEMP 36.6; O2SAT 99
[2022-03-12 17:05] LABS: Basophils Percent Auto 0.4 % (0.2-1.2); Eosinophils Absolute Auto 0.4 K/mm3 (0-0.3); Eosinophils Percent Auto 3.6 % (0-4.4); Hematocrit 38.4 % (37.0-47.0); Hemoglobin 12.9 g/dL (12.0-15.0); Immature Granulocyte Absolute 0.05 K/mm3 (0.00-0.031); Immature Granulocyte Percent A 0.5 % (0-0.5); Lymphocytes Absolute Auto 2.58 K/mm3 (0.9-3.2); Lymphocytes Percent Auto 23.7 % (18.3-44.2); Mean Corpuscular HGB Conc 33.6 g/dl (32-36); Mean Corpuscular Hemoglobin 30.1 pg (26-34); Mean Corpuscular Volume 89.7 fl (80-100); Mean Platelet Volume 8.8 fl (7.4-10.4); Monocytes Absolute Auto 0.7 K/mm3 (0.1-0.6); Neutrophils Absolute Auto 7.2 K/mm3 (1.3-6.7); Neutrophils Percent Auto 65.8 % (45.5-73.1); Platelet Count Result 308 k/mm3 (150-375); Red Blood Count 4.28 M/mm3 (4.2-5.4); Red Cell Distribution Width 12.2 % (11.5-14.5); White Blood Count 10.9 K/mm3 (4.5-10.0)
[2022-03-12 17:13] LABS: Alanine Aminotransferase 15 U/L (6-35); Albumin Level 4.2 g/dL (3.5-5.1); Alkaline Phosphatase 65 U/L (38-126); Anion Gap 6 mmol/L (8-16); Aspartate Amino Transferase 20 U/L (14-36); Bilirubin,Total 0.2 mg/dL (0.2-1.3); Blood Urea Nitrogen 5 mg/dL (7-17); Calcium 8.8 mg/dL (8.4-10.2); Carbon Dioxide 25 mmol/L (22-30); Chloride 103 mmol/L (98-107); Estimated CRCL calculation 151 ml/min; Estimated Glomerular Filt Rate > 60; Glucose 94 mg/dL (65-110); Lipase 89 U/L (23-300); Potassium 3.8 mmol/L (3.4-5.0); Sodium 134 mmol/L (137-145)
[2022-03-12 17:14] LABS: INR 1.1; Partial Thromboplastin Time 26.1 SECONDS (22.3-36.8); Prothrombin Time 13.5 Seconds (11.1-14.7)
[2022-03-12 17:33] LABS: Troponin I < 0.012 ng/mL (0.000-0.034)
[2022-03-12 19:53] VITALS: BP 126/77; PULSE 84; RESP 16; O2SAT 100
[2022-03-12] MEDS: SODIUM CHLORIDE 0.9% IV 1,000 ML 999 ML IV CONT (20:11)
--- NOTE | 2022-03-12 20:22 | PC.NURSE ---
Pt reports migraine headache that radiates down her neck that started two weeks ago. Pt also reports intermittent palpitations during this time. She c/o sharp chest pains accompanied with palpitations. Per pt, it happens randomly, but its worse when she's up and moving around. These episodes resolve on their own. She is currently 6-7 weeks . This is her first . She has tried taking tylenol for her headache but it hasn't helped. Skin is warm, pink, and dry. Respiratory rate regular and non-labored. drilling field professional shows rate in the 80s normal sinus rhythm.
[2022-03-12 20:36] LABS: Troponin I < 0.012 ng/mL (0.000-0.034)
[2022-03-12 20:37] LABS: D Dimer 0.34 ug/mL (<0.48)
[2022-03-12 20:48] VITALS: BP 105/76; PULSE 85; RESP 16; O2SAT 100
--- NOTE | 2022-03-12 21:03 | ED.GENADULT ---
HPI - General Adult General Chief complaint: Arrhythmia/Palpitations Stated complaint: 6 WKS PREG, HEART PALPATATIONS Time Seen by Provider: 03/12/22 19:44 Source: RN notes reviewed History of Present Illness HPI narrative: Patient presents emergency department for multiple complaints. Patient states she is approximately 6 weeks and currently lives in [place] she has been followed by TABLE OPERATOR in [place] and is currently here visiting. She states that for the past 2 weeks she has been having intermittent palpitations the palpitations feel like the heart is jumping or skipping and occur anywhere from 10-20 times a day and lasts for several seconds states that she has occasional chest pain that is intermittent across the chest with these episodes the last several seconds she also notes occasional shortness of breath. States she had been seen by her TABLE OPERATOR and was referred to cardiology but cannot get in for 2 weeks and came to the emergency department for further evaluation she also states that she has been having headaches for the past 1 week states the headaches are generalized and described as aching in nature they are associated with nausea. States she has tried taking Tylenol for the pain with minimal relief with last dose of Tylenol yesterday. She denies any fevers or chills or vision changes she denies any numbness or weakness of the extremities. She states she has had a history of migraines before in the past she denies any abdominal pain nausea vomiting vomiting, diarrhea or vaginal bleeding or discharge Related Data Allergies Allergy/AdvReac Type Severity Reaction Status Date / Time cephalexin Allergy Mild RASH Verified 12/20/20 22:50 Cephalosporins Allergy Mild HIVES Verified 12/20/20 22:50 codeine Allergy Unknown VOMITING Verified 12/20/20 22:50 sulfamethoxazole Allergy Anaphylaxis Verified 03/12/22 19:57 [From Bactrim] trimethoprim [From Bactrim] Allergy Anaphylaxis Verified 03/12/22 19:57 Review of Systems Review of Systems: Gen.: Denies fevers or chills Eyes: Denies eye pain or visual change ENT: Denies congestion Respiratory: Reports intermittent shortness of breath denies cough CV: see HPI GI: Denies abdominal pain nausea, emesis or diarrhea reports Musculoskeletal: Denies back pain or muscle pain Neuro: Reports headache Skin: Denies rash Except as documented, all other systems reviewed and negative PMFSH Past Medical History Medical History Allergy-induced asthma Anxiety Asthma Blepharitis of both eyes COVID-19 virus infection Mar 2020 Dysphagia Encounter for cervical Pap smear with pelvic exam Enlarged thyroid Epilepsy infancy Fractures Left arm, right hand GERD (gastroesophageal reflux disease) Pharyngitis Vitamin D deficiency Surgical History Surgical History History of orthopedic surgery Ankle, ligament reconstruction Family History Family History Mother Thyroid condition Heart disease Father Depression Bipolar 1 disorder Social History Social History Smoking status: Never smoker Tobacco type: cigarettes Second hand tobacco smoke exposure: No Alcohol intake: current Drinks per week: 1 Alcohol use details: only during the weekend Substance use: never Substance use type: unknown Gender identity (if verbalized by the patient): Female Sexual Orientation (if Verbalized by the Patient): Straight or Heterosexual Exam Narrative: APPEARANCE: No acute distress, nontoxic, resting in bed EYES: EOMI, PERRL HEENT: Normocephalic, atraumatic, TMs clear bilaterally nares patent Neck: Supple no meningismus RESPIRATORY: No respiratory distress Clear to auscultation bilaterally with no rhonchi wheezing or rales. CARDIOVASCULAR: Regul
[2022-03-12 21:26] VITALS: BP 108/70; PULSE 80; RESP 16; O2SAT 100
== END 2022-03-12 21:28 | disposition home or self-care (01) ==
PROVIDERS: Emergency Provider Emergency Medicine
DX: O26.891 Other specified pregnancy related conditions, first trimester (principal); R00.2 Palpitations; R51.9 Headache, unspecified; O99.511 Diseases of the respiratory system complicating pregnancy, first trimester; J45.909 Unspecified asthma, uncomplicated; O99.611 Diseases of the digestive system complicating pregnancy, first trimester; K21.9 Gastro-esophageal reflux disease without esophagitis; O99.281 Endocrine, nutritional and metabolic diseases complicating pregnancy, first trimester; E55.9 Vitamin D deficiency, unspecified; Z86.16 Personal history of COVID-19; Z3A.01 Less than 8 weeks gestation of pregnancy
CPT/HCPCS: 36415; 70450; 71045; 80053; 83690; 83735; 84484; 85025; 85380; 85610; 85730; 93005; 96361; 96374; 99284; J0131; J7030